=== PATIENT | female | born 1980 | race American Indian/Alaskan Native ===

== ENCOUNTER 2018-07-08 10:47 | Outpatient (CLI) | payer MEDICAID ==
[2018-07-08] MEDS ORDERED: NACL 0.9% 50 ML ONE (11:52)
--- NOTE | 2018-07-08 19:02 | Cat Scan Report ---
FINAL REPORT EXAM: CT NECK WO CON HISTORY: Dysphagia, oropharyngeal phase TECHNIQUE: Noncontrast, spiral CT scanning of the neck. Multiplanar reformations. PRIORS: None. FINDINGS: Examination is limited due to lack of IV contrast administration. Prominent adenoidal lymphoid tissue and right palatine tonsil may be reactive. No other discrete soft tissue mass or apparent adenopathy. The parapharyngeal, manager integrity, parotid, carotid, retropharyngeal and prevertebral spaces are without significant abnormality. The submandibular and sublingual spaces are grossly unremarkable. Larynx, trachea, thyroid gland and thoracic inlet within normal limits. IMPRESSION: 1. Prominent adenoidal lymphoid tissue and right palatine tonsil may be reactive, but nonspecific. Correlate clinically. 2. No other acute abnormality.
--- NOTE | 2018-07-08 19:09 | Cat Scan Report ---
FINAL REPORT EXAM: CT CHEST WO CON HISTORY: DYSPHAGIA TECHNIQUE: Spiral CT scanning of the chest. No IV contrast administered. Multiplanar reformations. PRIORS: None. FINDINGS: Chest: Examination limited due to lack of IV contrast administration. The lungs show no discrete parenchymal mass, focal consolidation or pleural effusions. No apparent pneumothorax. Aberrant right subclavian artery indenting posterior aspect of upper esophagus. Remainder of mediastinal structures are grossly unremarkable. No apparent aneurysm or pseudoaneurysm. No significant lymph node enlargement or axillary adenopathy. Visualized upper abdomen grossly unremarkable. IMPRESSION: 1. Aberrant right subclavian artery, with associated mass effect on posterior esophagus may be associated with dysphagia lusoria. Correlate clinically. 2. No other acute findings.
== END 2018-07-08 10:48 | disposition home or self-care (01) ==
LOC: CT 10:47
PROVIDERS: ATTEND Otolaryngology
DX: R13.12 Dysphagia, oropharyngeal phase (principal)
CPT/HCPCS: 36415; 70490; 71250; 82565; 84520

== ENCOUNTER 2022-02-24 02:02 | Emergency (ER) | payer MEDICAID, OTHER ==
[2022-02-24 02:11] VITALS: BP 159/100
--- NOTE | 2022-02-25 12:10 | Electrocardiograph Report ---
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
== END 2022-02-24 05:00 | disposition left against medical advice (07) ==
LOC: ED 02:02
DX: R07.9 Chest pain, unspecified (principal); Z53.21 Procedure and treatment not carried out due to patient leaving prior to being seen by health care provider
CPT/HCPCS: 93005